=== PATIENT | female | born 1960 | race American Indian/Alaskan Native ===

== ENCOUNTER 2017-10-24 13:16 | Inpatient (IN) | payer OTHER ==
--- NOTE | 2017-10-24 13:45 | Emergency Department Report ---
ED General Adult HPI - General Stated complaint: PE SENT FROM [place] Time Seen by Provider: 10/24/17 13:38 Source: patient, family - History of Present Illness Initial comments: Patient is a 57-year-old Brazilian female who is presenting with a pulmonary embolus. Patient states that last week she had surgery on her right distal tibia she had a pin placed. Patient noted 3 days ago that she started having some pain at the right knee with some swelling. Patient states that she started rubbing her leg the pain went away however 4 hours later she began to have shortness of breath. Patient has [employer] insurance she did see a [facility] facility had a CT scan done of the chest that showed a pulmonary embolus. Patient started on Lovenox and Coumadin. Patient returned today because of increased shortness of breath and additional CT scan was performed that showed that the patient now has a pulmonary infarct patient was hypoxic and was placed on a nonrebreather. Patient is denying any fever nausea vomiting chest pain at this time Consistency: constant Improves with: rest Worsens with: movement ED Review of Systems ROS: Stated complaint: PE SENT FROM [place] Other details as noted in HPI Constitutional: denies: chills, fever Eyes: denies: eye pain, eye discharge, vision change ENT: denies: ear pain, throat pain Respiratory: shortness of breath, SOB with exertion, SOB at rest. denies: cough , wheezing Cardiovascular: denies: chest pain, palpitations Endocrine: no symptoms reported Gastrointestinal: denies: abdominal pain, nausea, diarrhea Genitourinary: denies: urgency, dysuria, discharge Musculoskeletal: denies: back pain, joint swelling, arthralgia Skin: denies: rash, lesions Neurological: denies: headache, weakness, paresthesias Psychiatric: denies: anxiety, depression Hematological/Lymphatic: denies: easy bleeding, easy bruising ED Physical Exam - General General appearance: alert, in no apparent distress - Head Head exam: Present: atraumatic, normocephalic - Eye Eye exam: Present: normal appearance - ENT ENT exam: Present: mucous membranes moist - Neck Neck exam: Present: normal inspection - Respiratory Respiratory exam: Present: normal lung sounds bilaterally. Absent: respiratory distress, wheezes, rales, rhonchi - Cardiovascular Cardiovascular Exam: Present: regular rate, normal rhythm, normal heart sounds. Absent: systolic murmur, diastolic murmur, rubs, gallop - GI/Abdominal GI/Abdominal exam: Present: soft, normal bowel sounds. Absent: distended, tenderness, guarding - Extremities Exam Extremities exam: Present: normal inspection - Back Exam Back exam: Present: normal inspection - Neurological Exam Neurological exam: Present: alert, oriented X3 - Psychiatric Psychiatric exam: Present: normal affect, normal mood - Skin Skin exam: Present: warm, dry, intact, normal color. Absent: rash ED Medical Decision Making - Lab Data Result diagrams: 10/24/17 14:12 - EKG Data -: EKG Interpreted by Me (sinus rhythm rate of [address] segment changes normal axis) EKG shows normal: sinus rhythm, axis, intervals, QRS complexes, ST-T waves Rate: normal - EKG Data Interpretation: no acute changes - Medical Decision Making Discussed the CT findings with Dr. Granados with radiology. He states that there is a right lower lobe pulmonary embolus. Results of large amount of atelectasis and pleural effusion. Infarct could not be determined at this time. Patient is short short of breath and and is requiring oxyge this time Critical care time in (mins) excluding proc time.: 30 Critical care attestation.: If time is entered above; I have spent that time in minutes in the direct care of this critically ill patient, excluding procedure time. ED Disposition Clinical Impression: Pulmonary embolism, Hypoxia Disposition: OP ADMIT IP TO THIS HOSP Is pt being admited?: Yes Does the pt Need Aspirin: No Condition: Poor
[2017-10-24 14:37] LABS: Hematocrit 40.5 % (30.3-42.9); Hemoglobin 13.1 gm/dl (10.1-14.3); Mean Corpuscular HGB Conc 32 % (30-34); Mean Corpuscular Hemoglobin 29 pg (28-32); Mean Corpuscular Volume 90 fl (79-97); Platelet Count 166 K/mm3 (140-440); Red Blood Count 4.51 M/mm3 (3.65-5.03); Red Cell Distribution Width 13.4 % (13.2-15.2)
--- NOTE | 2017-10-24 14:52 | History and Physical Report ---
History of Present Illness Chief complaint: I have a clot in my lungs, and i cant breathe right History of present illness: 57 YO Female with HTN, Obesity presents to ED for evaluation. Pt states that she has experienced swelling and painin her right leg for the past 3 days. Pt is S/P surgery on her right distal tibia. Patient states that she began rubbing her leg which relieved the pain, but she experienced an acute onset of shortness of breath approximately 4 hours later. Pt was seen at at outside hospital and found to have acute hypoxemic respiratory failure, and underwent CTA of the chest which revealed a PE. Patient started on Lovenox and Coumadin. Patient returned today because of increased shortness of breath and additional CT scan was performed that showed that the patient now has a pulmonary infarct. Pt seen and evaluated in ED and was found to be hypoxic and was placed on a nonrebreather mask with supplemental oxygen. Pt denies fever, chills, CP, Palpitations, NVE, Syncope, productive cough, hemoptysis, BRBPR, or recent ill contacts. Past History Past Medical History: other (Obesity) Social history: single. denies: smoking, alcohol abuse, prescription drug abuse Family history: hypertension Medications and Allergies Allergies Allergy/AdvReac Type Severity Reaction Status Date / Time erythromycin base Allergy Itching Verified 10/24/17 16:23 [From Erythrocin] orange Allergy Bleeding Verified 10/24/17 16:18 Penicillins Allergy Itching Verified 10/24/17 16:20 chocolate flavor AdvReac Headache Verified 10/24/17 16:18 Home Medications Medication Instructions Recorded Confirmed Last Taken Type Ketorolac Tromethamine [Acular 1 drop OS QID 10/24/17 10/24/17 Unknown History 0.5% Opth Soln] amLODIPine [Norvasc] 5 mg PO DAILY 10/24/17 10/24/17 Unknown History oxyCODONE /ACETAMINOPHEN [Percocet 1 - 2 tab PO Q4-6H PRN 10/24/17 10/24/17 Unknown History 5/325] prednisoLONE ACETATE 1% [Pred 1 drop OS Q2H 10/24/17 10/24/17 Unknown History Forte 1%] Review of Systems Constitutional: no weight loss, no weight gain, no fever, no chills Ears, nose, mouth and throat: no ear pain, no ear discharge, no tinnitis, no decreased hearing, no nose pain, no nasal discharge, no sinus pressure, no sinus pain Breasts: no change in shape, no swelling, no mass Cardiovascular: shortness of breath, leg edema, no chest pain, no orthopnea, no palpitations, no rapid/irregular heart beat Respiratory: pleurisy, no cough, no cough with sputum, no hemoptysis Gastrointestinal: no abdominal pain, no nausea, no vomiting, no diarrhea, no constipation Genitourinary Female: no pelvic pain, no flank pain, no menorrhagia, no dysuria , no urinary frequency, no urgency Rectal: no pain, no incontinence, no bleeding Musculoskeletal: no neck stiffness, no neck pain, no shooting arm pain, no arm numbness/tingling, no low back pain, no shooting leg pain, no leg numbness/ tingling Integumentary: no rash, no pruritis, no redness, no sores, no wounds Neurological: no paralysis, no weakness, no parathesias, no numbness, no tingling, no seizures Psychiatric: no anxiety, no memory loss, no change in sleep habits, no sleep disturbances, no insomnia, no hypersomnia, no change in appetite Endocrine: no cold intolerance, no heat intolerance, no polyphagia, no excessive thirst, no polydipsia, no polyuria Hematologic/Lymphatic: no easy bruising, no easy bleeding Allergic/Immunologic: no urticaria, no allergic rhinitis, no wheezing Exam - Constitutional General appearance: Present: mild distress, obese - EENT Eyes: Present: PERRL ENT: hearing intact, clear oral mucosa - Neck Neck: Present: supple, normal ROM - Respiratory Respiratory effort: labored Respiratory: bilateral: diminished - Cardiovascular Heart Sounds: Present: S1 & S2. Absent: rub, click - Extremities Extremities: pulses symmetrical, No edema Extremity abnormal: edema, other (RLE, ) Peripheral Pulses: within normal limits - Abdominal General gastrointestinal: Present: soft, non-tender, non-distended, normal bowel sounds Female genitourinary: Present: normal - Integumentary Integumentary: Present: clear, warm, dry - Musculoskeletal Musculoskeletal: gait normal, strength equal bilaterally - Psychiatric Psychiatric: appropriate mood/affect, intact judgment & insight - Neurologic Neurologic: CNII-XII intact, moves all extremities Results - Labs CBC & Chem 7: 10/24/17 14:12 10/24/17 14:12 Labs: Abnormal lab results 10/24/17 Range/Units 14:12 WBC 4.0 L (4.5-11.0) K/mm3 Assessment and Plan - Patient Problems (1) Acute respiratory failure Current Visit: Yes Status: Acute Plan to address problem: supplemental oxygen, nebs, aspiration precautions, treat Pulmonary embolism. (2) HTN (hypertension) Current Visit: Yes Status: Acute Plan to address problem: monitor BP q shift, (3) Pulmonary embolism Current Visit: Yes Status: Acute Qualifiers: Pulmonary embolism type: other Plan to address problem: therapeutic anticoagulation, supplemental oxygen, nebulizer therapy, incentive spirometry, pulmonary toilet. (4) Sepsis Current Visit: Yes Status: Acute Qualifiers: Sepsis type: sepsis due to unspecified organism Qualified Code(s): A41.9 - Sepsis, unspecified organism Plan to address problem: Sepsis protocol, IV abx, IVF, blood cultures, Chest x ray, urinalysis, serial lactic acid, monitor uop q shift. (5) DVT prophylaxis Current Visit: Yes Status: Acute
[2017-10-24] MEDS ORDERED: DULCOLAX PR PRN (14:54)
[2017-10-24] MEDS ORDERED: MILK OF MAGNESIA PO PRN (14:54)
[2017-10-24] MEDS ORDERED: TYLENOL PO PRN (14:54)
[2017-10-24] MEDS ORDERED: ZOFRAN IV PRN (14:54)
[2017-10-24 15:09] LABS: BUN/Creatinine Ratio 19; Blood Urea Nitrogen 19 mg/dL (7-17); Hemolysis Index 31
[2017-10-24] MEDS ORDERED: ZOSYN/NS 4.5GM/100ML 4.5 GM/100 ML VIAL IV ONE (15:37)
[2017-10-24 15:40] LABS: Band Neutrophils # (Manual) 1.2 K/mm3; Basophils % (Manual) 0 % (0.0-1.8); Giant Platelets Few; Monocytes % (Manual) 0 % (0.0-7.3); Ovalocytes Few; Platelet Estimate Consistent w Auto; Total Cells Counted 100
[2017-10-24 16:35] LABS: INR 1.24 (0.87-1.13)
[2017-10-24] MEDS ORDERED: NACL 0.9% 1000 ML 1,000 ML ONE (16:39)
[2017-10-24] MEDS ORDERED: NACL 0.9% 1000 ML 1,000 ML IV ONE (16:55)
[2017-10-24] MEDS: ELIQUIS PO SCH ×2 (17:05→21:36)
[2017-10-24] MEDS ORDERED: NACL 0.9% 1000 ML IV ONE (17:52)
[2017-10-24] MEDS ORDERED: ATIVAN IV PRN (17:56)
[2017-10-24] MEDS: PERCOCET 5/325 PO PRN (21:36)
[2017-10-24] MEDS ORDERED: ELIQUIS PO SCH (22:00)
[2017-10-25] MEDS ORDERED: TORADOL IV ONE ×2 (00:28→12:32)
[2017-10-25] MEDS: PERCOCET 5/325 PO PRN ×2 (08:26→20:46)
[2017-10-25] MEDS: PRED FORTE 1% OS SCH ×8 (10:00→23:34)
[2017-10-25] MEDS: NORVASC PO SCH (11:08)
[2017-10-25] MEDS: ELIQUIS PO SCH ×2 (11:09→21:16)
--- NOTE | 2017-10-25 11:43 | Progress Note ---
Assessment and Plan Assessment and plan: 57 YO Female with HTN, Obesity who recently had a fracture in her right leg for which she had surgery, she presented with acute onset of shortness of breath and pleuritic chest pain. She was seen at [facility], she had a CT angiogram which displayed moderate size right-sided pulmonary embolism. She desaturated on the nonrebreather, weaned to Ventimask and now has been weaned to nasal cannula Acute hypoxic respiratory failure Continue to wean oxygen, improving Acute pulmonary embolism Continue anticoagulation, obtain venous Dopplers of lower extremities Patient has been advised that she'll need age appropriate cancer screening upon discharge. States that she's really had mammogram, and Pap smear, will need colonoscopy Hypertension continue home meds Fever Imaging of her lungs is not consistent with infection, appears to be lung infarction from the pulmonary embolus Fever curve is coming down, obtain urine studies to rule out UTI Sirs No clear source of infection at this time, most likely due to pulmonary embolism History Interval history: She is complaining of nasal congestion and nasal bleeding since she has been oxygen Review of systems Constitutional: No fevers, no malaise, no joint pains CVS: No chest pain, no orthopnea, no dyspnea on exertion, no pedal edema GI: No abdominal pain, no diarrhea, no vomiting, no constipation Respiratory: Admits shortness of breath, pleuritic pain, dyspnea and exertion,, no wheezing, no coughing Hospitalist Physical - Physical exam Narrative exam: General.: Appears well, no distress, nontoxic HEENT: Moist mucous membranes, extraocular muscles intact, no lymphadenopathy Neck: supple Cardiac: S1-S2 heard Lungs: clear to auscultation bilaterally Abdomen: soft , nontender, nondistended, bowel sounds positive Extremities: no edema clubbing or cyanosis Skin: no rash or lesions Neurologic: no gross focal deficits Psych: appropriate behavior, appropriate mood, corporative, judgment intact - Constitutional Vitals: Temp Pulse Resp BP Pulse Ox 99.6 F 83 18 114/64 98 10/25/17 07:46 10/25/17 07:46 10/25/17 07:46 10/25/17 11:08 10/25/17 07:46 General appearance: Present: mild distress, obese Results - Labs CBC & Chem 7: 10/24/17 14:12 10/24/17 14:12 Labs: Laboratory Last Values WBC 4.0 K/mm3 (4.5-11.0) L 10/24/17 14:12 RBC 4.51 M/mm3 (3.65-5.03) 10/24/17 14:12 Hgb 13.1 gm/dl (10.1-14.3) 10/24/17 14:12 Hct 40.5 % (30.3-42.9) 10/24/17 14:12 MCV 90 fl (79-97) 10/24/17 14:12 MCH 29 pg (28-32) 10/24/17 14:12 MCHC 32 % (30-34) 10/24/17 14:12 RDW 13.4 % (13.2-15.2) 10/24/17 14:12 Plt Count 166 K/mm3 (140-440) 10/24/17 14:12 Add Manual Diff Complete 10/24/17 14:12 Total Counted 100 10/24/17 14:12 Seg Neutrophils % Food Manager 10/24/17 14:12 Seg Neuts % (Manual) 65.0 % (40.0-70.0) 10/24/17 14:12 Band Neutrophils % 31.0 % 10/24/17 14:12 Lymphocytes % (Manual) 3.0 % (13.4-35.0) L 10/24/17 14:12 Reactive Lymphs % (Man) 0 % 10/24/17 14:12 Monocytes % (Manual) 0 % (0.0-7.3) 10/24/17 14:12 Eosinophils % (Manual) 1.0 % (0.0-4.3) 10/24/17 14:12 Basophils % (Manual) 0 % (0.0-1.8) 10/24/17 14:12 Metamyelocytes % 0 % 10/24/17 14:12 Myelocytes % 0 % 10/24/17 14:12 Promyelocytes % 0 % 10/24/17 14:12 Blast Cells % 0 % 10/24/17 14:12 Nucleated RBC % Not Reportable 10/24/17 14:12 Seg Neutrophils # Man 2.6 K/mm3 (1.8-7.7) 10/24/17 14:12 Band Neutrophils # 1.2 K/mm3 10/24/17 14:12 Lymphocytes # (Manual) 0.1 K/mm3 (1.2-5.4) L 10/24/17 14:12 Abs React Lymphs (Man) 0.0 K/mm3 10/24/17 14:12 Monocytes # (Manual) 0.0 K/mm3 (0.0-0.8) 10/24/17 14:12 Eosinophils # (Manual) 0.0 K/mm3 (0.0-0.4) 10/24/17 14:12 Basophils # (Manual) 0.0 K/mm3 (0.0-0.1) 10/24/17 14:12 Metamyelocytes # 0.0 K/mm3 10/24/17 14:12 Myelocytes # 0.0 K/mm3 10/24/17 14:12 Promyelocytes # 0.0 K/mm3 10/24/17 14:12 Blast Cells # 0.0 K/mm3 10/24/17 14:12 WBC Morphology Not Reportable 10/24/17 14:12 Hypersegmented Neuts Not Reportable 10/24/17 14:12 Hyposegmented Neuts Not Reportable 10/24/17 14:12 Hypogranular Neuts Not Reportable 10/24/17 14:12 Smudge Cells Not Reportable 10/24/17 14:12 Toxic Granulation Not Reportable 10/24/17 14:12 Toxic Vacuolation Not Reportable 10/24/17 14:12 Dohle Bodies Not Reportable 10/24/17 14:12 Pelger-Huet Anomaly Not Reportable 10/24/17 14:12 Osmin Rods Not Reportable 10/24/17 14:12 Platelet Estimate Consistent w auto 10/24/17 14:12 Clumped Platelets Not Reportable 10/24/17 14:12 Plt Clumps, EDTA Not Reportable 10/24/17 14:12 Large Platelets Not Reportable 10/24/17 14:12 Giant Platelets Few 10/24/17 14:12 Platelet Satelliting Not Reportable 10/24/17 14:12 Plt Morphology Comment Not Reportable 10/24/17 14:12 RBC Morphology Not Reportable 10/24/17 14:12 Dimorphic RBCs Not Reportable 10/24/17 14:12 Polychromasia Not Reportable 10/24/17 14:12 Hypochromasia Not Reportable 10/24/17 14:12 Poikilocytosis Not Reportable 10/24/17 14:12 Anisocytosis Not Reportable 10/24/17 14:12 Microcytosis Not Reportable 10/24/17 14:12 Macrocytosis Not Reportable 10/24/17 14:12 Spherocytes Not Reportable 10/24/17 14:12 Pappenheimer Bodies Not Reportable 10/24/17 14:12 Sickle Cells Not Reportable 10/24/17 14:12 Target Cells Not Reportable 10/24/17 14:12 Tear Drop Cells Not Reportable 10/24/17 14:12 Ovalocytes Few 10/24/17 14:12 Helmet Cells Not Reportable 10/24/17 14:12 [place] Bodies Not Reportable 10/24/17 14:12 [place] Rings Not Reportable 10/24/17 14:12 [place] Cells Not Reportable 10/24/17 14:12 Bite Cells Not Reportable 10/24/17 14:12 Crenated Cell Not Reportable 10/24/17 14:12 Elliptocytes Not Reportable 10/24/17 14:12 Acanthocytes (Spur) Not Reportable 10/24/17 14:12 Rouleaux Not Reportable 10/24/17 14:12 Hemoglobin C Crystals Not Reportable 10/24/17 14:12 Schistocytes Not Reportable 10/24/17 14:12 Malaria parasites Not Reportable 10/24/17 14:12 Louis Bodies Not Reportable 10/24/17 14:12 Hem Pathologist Commnt No 10/24/17 14:12 PT 16.3 Sec. (12.2-14.9) H 10/24/17 16:15 INR 1.24 (0.87-1.13) H 10/24/17 16:15 POC ABG pH 7.411 (7.35-7.45) 10/24/17 17:08 POC ABG pCO2 31.1 (35-45) L 10/24/17 17:08 POC ABG pO2 94 (80-105) 10/24/17 17:08 POC ABG HCO3 19.8 10/24/17 17:08 POC ABG Total CO2 21 10/24/17 17:08 POC ABG O2 Sat 97 10/24/17 17:08 POC ABG Base Excess -5 10/24/17 17:08 FiO2 100 % 10/24/17 17:08 Sodium 137 mmol/L (137-145) 10/24/17 14:12 Potassium 4.6 mmol/L (3.6-5.0) 10/24/17 14:12 Chloride 100.2 mmol/L (98-107) 10/24/17 14:12 Carbon Dioxide 18 mmol/L (22-30) L 10/24/17 14:12 Anion Gap 23 mmol/L 10/24/17 14:12 BUN 19 mg/dL (7-17) H 10/24/17 14:12 Creatinine 1.0 mg/dL (0.7-1.2) 10/24/17 14:12 Estimated GFR > 60 ml/min 10/24/17 14:12 BUN/Creatinine Ratio 19 % 10/24/17 14:12 Glucose 109 mg/dL (65-100) H 10/24/17 14:12 Lactic Acid 1.40 mmol/L (0.7-2.0) 10/24/17 21:20 Calcium 11.0 mg/dL (8.4-10.2) H 10/24/17 14:12
--- NOTE | 2017-10-25 13:24 | XRay Report ---
Chest 2 views. History: Fever. Findings: The heart and pulmonary vessels are normal. There is right lower lobe subsegmental atelectasis and/or infiltrate. There is mild elevation of the right hemidiaphragm. Otherwise the lungs are clear. Impression: Right lower lobe atelectasis and/or infiltrate.
[2017-10-25] MEDS ORDERED: ZOSYN/NS 4.5GM/100ML 4.5 GM/100 ML VIAL IV SCH (14:00)
[2017-10-25] MEDS: DEEP SEA NS SCH (21:15)
[2017-10-26] MEDS: TORADOL IV SCH ×3 (01:50→14:30)
[2017-10-26] MEDS: PRED FORTE 1% OS SCH ×11 (02:09→23:41)
[2017-10-26 05:31] LABS: Bacteria,Urine 1+ /HPF (Negative); Bilirubin,Urine NEG (Negative); Blood,Urine MOD (Negative); Color,Urine Yellow (Yellow); Mucus,Urine FEW /HPF; Nitrite,Urine NEG (Negative); Protein,Urine <15 mg/dL mg/dL (Negative)
[2017-10-26] MEDS: ELIQUIS PO SCH ×2 (10:22→21:34)
[2017-10-26] MEDS: NORVASC PO SCH (10:23)
--- NOTE | 2017-10-26 11:56 | Progress Note ---
Assessment and Plan Assessment and plan: 57 YO Female with HTN, Obesity who recently had a fracture in her right leg for which she had surgery, she presented with acute onset of shortness of breath and pleuritic chest pain. She was seen at [facility], she had a CT angiogram which displayed moderate size right-sided pulmonary embolism. She desaturated on the nonrebreather, weaned to Ventimask and now has been weaned to nasal cannula Acute hypoxic respiratory failure Continue to wean oxygen, improving assess for ambulatory home o2 today Acute pulmonary embolism Continue anticoagulation, obtain venous Dopplers of lower extremities Patient has been advised that she'll need age appropriate cancer screening upon discharge. States that she's really had mammogram, and Pap smear, will need colonoscopy Hypertension continue home meds Fever Imaging of her lungs is not consistent with infection, appears to be lung infarction from the pulmonary embolus Fever curve is coming down, obtain urine studies to rule out UTI Sirs No clear source of infection at this time, most likely due to pulmonary embolism History Interval history: She is complaining of nasal congestion and nasal bleeding since she has been oxygen Review of systems Constitutional: No fevers, no malaise, no joint pains CVS: No chest pain, no orthopnea, no dyspnea on exertion, no pedal edema GI: No abdominal pain, no diarrhea, no vomiting, no constipation Respiratory: Admits shortness of breath, pleuritic pain, dyspnea and exertion,, no wheezing, no coughing Hospitalist Physical - Physical exam Narrative exam: General.: Appears well, no distress, nontoxic HEENT: Moist mucous membranes, extraocular muscles intact, no lymphadenopathy Neck: supple Cardiac: S1-S2 heard Lungs: clear to auscultation bilaterally Abdomen: soft , nontender, nondistended, bowel sounds positive Extremities: no edema clubbing or cyanosis Skin: no rash or lesions Neurologic: no gross focal deficits Psych: appropriate behavior, appropriate mood, corporative, judgment intact - Constitutional Vitals: Temp Pulse Resp BP Pulse Ox 98.1 F 84 18 123/81 95 10/26/17 08:01 10/26/17 08:01 10/26/17 08:01 10/26/17 08:01 10/26/17 08:01 General appearance: Present: mild distress, obese Results - Labs CBC & Chem 7: 10/24/17 14:12 10/24/17 14:12 Labs: Laboratory Last Values WBC 4.0 K/mm3 (4.5-11.0) L 10/24/17 14:12 RBC 4.51 M/mm3 (3.65-5.03) 10/24/17 14:12 Hgb 13.1 gm/dl (10.1-14.3) 10/24/17 14:12 Hct 40.5 % (30.3-42.9) 10/24/17 14:12 MCV 90 fl (79-97) 10/24/17 14:12 MCH 29 pg (28-32) 10/24/17 14:12 MCHC 32 % (30-34) 10/24/17 14:12 RDW 13.4 % (13.2-15.2) 10/24/17 14:12 Plt Count 166 K/mm3 (140-440) 10/24/17 14:12 Add Manual Diff Complete 10/24/17 14:12 Total Counted 100 10/24/17 14:12 Seg Neutrophils % Payroll Administrative Assistant 10/24/17 14:12 Seg Neuts % (Manual) 65.0 % (40.0-70.0) 10/24/17 14:12 Band Neutrophils % 31.0 % 10/24/17 14:12 Lymphocytes % (Manual) 3.0 % (13.4-35.0) L 10/24/17 14:12 Reactive Lymphs % (Man) 0 % 10/24/17 14:12 Monocytes % (Manual) 0 % (0.0-7.3) 10/24/17 14:12 Eosinophils % (Manual) 1.0 % (0.0-4.3) 10/24/17 14:12 Basophils % (Manual) 0 % (0.0-1.8) 10/24/17 14:12 Metamyelocytes % 0 % 10/24/17 14:12 Myelocytes % 0 % 10/24/17 14:12 Promyelocytes % 0 % 10/24/17 14:12 Blast Cells % 0 % 10/24/17 14:12 Nucleated RBC % Not Reportable 10/24/17 14:12 Seg Neutrophils # Man 2.6 K/mm3 (1.8-7.7) 10/24/17 14:12 Band Neutrophils # 1.2 K/mm3 10/24/17 14:12 Lymphocytes # (Manual) 0.1 K/mm3 (1.2-5.4) L 10/24/17 14:12 Abs React Lymphs (Man) 0.0 K/mm3 10/24/17 14:12 Monocytes # (Manual) 0.0 K/mm3 (0.0-0.8) 10/24/17 14:12 Eosinophils # (Manual) 0.0 K/mm3 (0.0-0.4) 10/24/17 14:12 Basophils # (Manual) 0.0 K/mm3 (0.0-0.1) 10/24/17 14:12 Metamyelocytes # 0.0 K/mm3 10/24/17 14:12 Myelocytes # 0.0 K/mm3 10/24/17 14:12 Promyelocytes # 0.0 K/mm3 10/24/17 14:12 Blast Cells # 0.0 K/mm3 10/24/17 14:12 WBC Morphology Not Reportable 10/24/17 14:12 Hypersegmented Neuts Not Reportable 10/24/17 14:12 Hyposegmented Neuts Not Reportable 10/24/17 14:12 Hypogranular Neuts Not Reportable 10/24/17 14:12 Smudge Cells Not Reportable 10/24/17 14:12 Toxic Granulation Not Reportable 10/24/17 14:12 Toxic Vacuolation Not Reportable 10/24/17 14:12 Dohle Bodies Not Reportable 10/24/17 14:12 Pelger-Huet Anomaly Not Reportable 10/24/17 14:12 Osmin Rods Not Reportable 10/24/17 14:12 Platelet Estimate Consistent w auto 10/24/17 14:12 Clumped Platelets Not Reportable 10/24/17 14:12 Plt Clumps, EDTA Not Reportable 10/24/17 14:12 Large Platelets Not Reportable 10/24/17 14:12 Giant Platelets Few 10/24/17 14:12 Platelet Satelliting Not Reportable 10/24/17 14:12 Plt Morphology Comment Not Reportable 10/24/17 14:12 RBC Morphology Not Reportable 10/24/17 14:12 Dimorphic RBCs Not Reportable 10/24/17 14:12 Polychromasia Not Reportable 10/24/17 14:12 Hypochromasia Not Reportable 10/24/17 14:12 Poikilocytosis Not Reportable 10/24/17 14:12 Anisocytosis Not Reportable 10/24/17 14:12 Microcytosis Not Reportable 10/24/17 14:12 Macrocytosis Not Reportable 10/24/17 14:12 Spherocytes Not Reportable 10/24/17 14:12 Pappenheimer Bodies Not Reportable 10/24/17 14:12 Sickle Cells Not Reportable 10/24/17 14:12 Target Cells Not Reportable 10/24/17 14:12 Tear Drop Cells Not Reportable 10/24/17 14:12 Ovalocytes Few 10/24/17 14:12 Helmet Cells Not Reportable 10/24/17 14:12 [place] Bodies Not Reportable 10/24/17 14:12 [place] Rings Not Reportable 10/24/17 14:12 Paddy Cells Not Reportable 10/24/17 14:12 Bite Cells Not Reportable 10/24/17 14:12 Crenated Cell Not Reportable 10/24/17 14:12 Elliptocytes Not Reportable 10/24/17 14:12 Acanthocytes (Spur) Not Reportable 10/24/17 14:12 Rouleaux Not Reportable 10/24/17 14:12 Hemoglobin C Crystals Not Reportable 10/24/17 14:12 Schistocytes Not Reportable 10/24/17 14:12 Malaria parasites Not Reportable 10/24/17 14:12 Louis Bodies Not Reportable 10/24/17 14:12 Hem Pathologist Commnt No 10/24/17 14:12 PT 16.3 Sec. (12.2-14.9) H 10/24/17 16:15 INR 1.24 (0.87-1.13) H 10/24/17 16:15 POC ABG pH 7.411 (7.35-7.45) 10/24/17 17:08 POC ABG pCO2 31.1 (35-45) L 10/24/17 17:08 POC ABG pO2 94 (80-105) 10/24/17 17:08 POC ABG HCO3 19.8 10/24/17 17:08 POC ABG Total CO2 21 10/24/17 17:08 POC ABG O2 Sat 97 10/24/17 17:08 POC ABG Base Excess -5 10/24/17 17:08 FiO2 100 % 10/24/17 17:08 Sodium 137 mmol/L (137-145) 10/24/17 14:12 Potassium 4.6 mmol/L (3.6-5.0) 10/24/17 14:12 Chloride 100.2 mmol/L (98-107) 10/24/17 14:12 Carbon Dioxide 18 mmol/L (22-30) L 10/24/17 14:12 Anion Gap 23 mmol/L 10/24/17 14:12 BUN 19 mg/dL (7-17) H 10/24/17 14:12 Creatinine 1.0 mg/dL (0.7-1.2) 10/24/17 14:12 Estimated GFR > 60 ml/min 10/24/17 14:12 BUN/Creatinine Ratio 19 % 10/24/17 14:12 Glucose 109 mg/dL (65-100) H 10/24/17 14:12 Lactic Acid 1.40 mmol/L (0.7-2.0) 10/24/17 21:20 Calcium 11.0 mg/dL (8.4-10.2) H 10/24/17 14:12 Urine Color Yellow (Yellow) 10/26/17 04:48 Urine Turbidity Clear (Clear) 10/26/17 04:48 Urine pH 6.0 (5.0-7.0) 10/26/17 04:48 Ur Specific [place] 1.015 (1.003-1.030) 10/26/17 04:48 Urine Protein <15 mg/dl mg/dL (Negative) 10/26/17 04:48 Urine Glucose (UA) Neg mg/dL (Negative) 10/26/17 04:48 Urine Ketones Neg mg/dL (Negative) 10/26/17 04:48 Urine Blood Mod (Negative) 10/26/17 04:48 Urine Nitrite Neg (Negative) 10/26/17 04:48 Urine Bilirubin Neg (Negative) 10/26/17 04:48 Urine Urobilinogen 2.0 mg/dL (<2.0) 10/26/17 04:48 Ur Leukocyte Esterase Sm (Negative) 10/26/17 04:48 Urine WBC (Auto) 4.0 /HPF (0.0-6.0) 10/26/17 04:48 Urine RBC (Auto) 5.0 /HPF (0.0-6.0) 10/26/17 04:48 U Epithel Cells (Auto) < 1.0 /HPF (0-13.0) 10/26/17 04:48 Urine Bacteria (Auto) 1+ /HPF (Negative) 10/26/17 04:48 Urine Mucus Few /HPF 10/26/17 04:48 C. difficile Toxin A&B Negative (Negative) 10/26/17 Unknown
[2017-10-26] MEDS: DEEP SEA NS SCH ×4 (13:35→21:35)
[2017-10-26] MEDS: PERCOCET 5/325 PO PRN (19:26)
[2017-10-27] MEDS: TORADOL IV SCH ×2 (03:26→04:16)
[2017-10-27] MEDS: PRED FORTE 1% OS SCH ×2 (03:26→05:44)
[2017-10-27 08:09] VITALS: BP 135/84
[2017-10-27] MEDS: PERCOCET 5/325 PO PRN (09:51)
--- NOTE | 2017-10-27 10:06 | Discharge Summary ---
Providers - Providers Date of Admission: 10/24/17 14:54 Attending physician: AGUEDA TRIPP MD 10/26/17 08:01 Physical Therapy Evaluation and Treat [CONS] Routine Comment: Reason For Exam: debility 10/26/17 14:26 Physical Therapy Evaluation and Treat [CONS] Routine Comment: Reason For Exam: debility 10/26/17 14:56 Physical Therapy Evaluation and Treat [CONS] Routine Comment: Reason For Exam: debility Primary care physician: FINISHING ROOM OPERATOR Hospitalization Condition: Poor Hospital course: 57 YO Female with HTN, Obesity who recently had a fracture in her right leg for which she had surgery, she presented with acute onset of shortness of breath and pleuritic chest pain. She was seen at [facility], she had a CT angiogram which displayed moderate size right-sided pulmonary embolism. She desaturated on the nonrebreather, weaned to Ventimask and now has been weaned to nasal cannula. She received anticoagulants, she was successfully weaned off oxygen. She received physical therapy and was prescribed a rolling walker for disability. She also had infectious workup because she had fever, infectious workup including chest x-ray and urine studies and blood cultures were negative. Fever was dear by attributed to pulmonary embolism. She clinically improved and was discharged home. This was discussed with the [facility] doctor prior to her discharge. Discharge diagnoses Acute hypoxic respiratory failure Acute pulmonary embolism Hypertension Fever Sirs Disposition: DC-01 TO HOME OR SELFCARE Time spent for discharge: 33 minutes Core Measure Documentation - Palliative Care Palliative Care/ Comfort Measures: Not Applicable - Core Measures Any of the following diagnoses?: DVT/PE - VTE Discharge Requirements Deep Vein Thrombosis/Pulmonary Embolism Present on Admission: Yes Has pt received <5 days of overlap therapy or INR<2.0: Yes Anticoagulant overlap therapy prescribed at discharge: No Contraindication No Overlap Therapy order at DC: Not Indicated Exam - Physical Exam Narrative exam: General.: Appears well, no distress, nontoxic HEENT: Moist mucous membranes, extraocular muscles intact, no lymphadenopathy Neck: supple Cardiac: S1-S2 heard Lungs: clear to auscultation bilaterally Abdomen: soft , nontender, nondistended, bowel sounds positive Extremities: no edema clubbing or cyanosis Skin: no rash or lesions Neurologic: no gross focal deficits Psych: appropriate behavior, appropriate mood, corporative, judgment intact - Constitutional Vitals: Temp Pulse Resp BP Pulse Ox 98.1 F 77 18 135/84 92 10/27/17 07:42 10/27/17 07:42 10/27/17 07:42 10/27/17 07:42 10/27/17 07:42 Plan Follow up with: SERGIO LINDSEY MD [Referring] - 7 Days Prescriptions: Apixaban [Eliquis] 5 mg PO Q12HR #68 tablet oxyCODONE /ACETAMINOPHEN [Percocet 5/325 mg] 2 tab PO Q6H PRN #14 tablet PRN Reason: Pain, Moderate (4-6)
[2017-10-27] MEDS: NORVASC PO SCH (10:53)
[2017-10-27] MEDS: ELIQUIS PO SCH (10:53)
== END 2017-10-27 14:11 | disposition home or self-care (01) | DRG 175 ==
LOC: ED 13:16 → 3A 14:54
PROVIDERS: ADMIT Internal Medicine; ATTEND Internal Medicine
DX: I26.99 Other pulmonary embolism without acute cor pulmonale (principal); J96.90 Respiratory failure, unspecified, unspecified whether with hypoxia or hypercapnia; J96.01 Acute respiratory failure with hypoxia; R65.10 Systemic inflammatory response syndrome (SIRS) of non-infectious origin without acute organ dysfunction; Z88.0 Allergy status to penicillin; Z88.8 Allergy status to other drugs, medicaments and biological substances; Z91.018 Allergy to other foods; E66.9 Obesity, unspecified; Z68.33 Body mass index [BMI] 33.0-33.9, adult; Z82.49 Family history of ischemic heart disease and other diseases of the circulatory system
CPT/HCPCS: 36415; 71046; 80048; 81001; 82140; 82803; 85007; 85025; 85610; 87040; 87086; 87324; 93005; 93010; 93306; 96360; J1885; J2543; J7030